=== PATIENT | female | born 2000 | race Two or more races ===

== ENCOUNTER 2022-01-03 04:33 | Emergency (ER) | payer SELFPAY ==
[~2022-01-03] VITALS: Ht 162.6 cm; Wt 81.6 kg
[2022-01-03] MEDS ORDERED: cefTRIAXone 1GM/50ML D5W 50 ML IV ONE (09:30)
[2022-01-03] MEDS ORDERED: SODIUM CHLORIDE 0.9% 1,000 ML IV ONE (09:30)
[2022-01-03 09:56] VITALS: BP 111/71
[2022-01-03 10:07] LABS: Basophils # (auto) 0.1 10 ^3/uL (0-0.2); Basophils % (auto) 2.1 % (0.0-2.0); Eosinophils # (auto) 0 10 ^3/uL (0-0.8); Hematocrit 39.9 % (36.0-46.0); Hemoglobin 13.2 g/dL (12.2-16.2); Lymphocytes # (auto) 0.6 10 ^3/uL (0.4-5.4); Lymphocytes % (auto) 10.6 % (10.0-50.0); Mean Corpuscular Hemoglobin 27.9 pg (28.0-32.0); Mean Corpuscular Hgb Conc. 33.1 g/dL (32.0-36.0); Mean Corpuscular Volume 84.1 fL (80.0-100.0); Monocytes # (auto) 0.6 10 ^3/uL (0-1.3); Monocytes % (auto) 9.5 % (0.0-12.0); Neutrophils # (auto) 4.6 10 ^3/uL (1.6-8.6); Neutrophils % (auto) 77.8 % (37.0-80.0); Nucleated Red Blood Cells % 0.1 %; Red Blood Cells 4.75 10^6/uL (4.0-5.20); Red Cell Distribution Width 14.8 % (11.8-14.3); White Blood Cell 5.9 10^3/uL (4.4-10.8)
[2022-01-03 10:21] LABS: Calcium 9.1 mg/dL (8.5-10.1)
[2022-01-03 10:32] LABS: INR 1.08 (0.9-1.15); Partial Thromboplastin Time 24.2 sec (23.6-33.0)
[2022-01-03 10:37] LABS: BUN/Creatinine Ratio 9.9; Bilirubin, Total 0.3 mg/dL (0.2-1.0); Total Protein 8.9 g/dL (6.4-8.2)
[2022-01-03] MEDS ORDERED: IOHEXOL 350 MG/ML 100ML IJ ONE (11:33)
[2022-01-03] MEDS ORDERED: PRED20TA2 PO (12:10)
[2022-01-03] MEDS ORDERED: AMOX-277 PO (12:10)
[2022-01-03] MEDS ORDERED: ACET-1158 PO (12:10)
== END 2022-01-03 12:46 | disposition home or self-care (01) ==
LOC: ER 04:33
DX: U07.1 COVID-19 (principal); J06.9 Acute upper respiratory infection, unspecified; R04.2 Hemoptysis
CPT/HCPCS: 36415; 71275; 80053; 85025; 85610; 85730; 87426; 87804; 96365; 99285; J0696; J7030; Q9967

== ENCOUNTER 2022-03-26 10:22 | Emergency (ER) | payer SELFPAY ==
[~2022-03-26] VITALS: Ht 162.6 cm; Wt 81.8 kg
[~2022-03-26 10:22] MED LIST: ACET-1158 PO; AMOX-277 PO; PRED20TA2 PO
[2022-03-26] MEDS ORDERED: MAGNESIUM SULFATE 1GM/100ML 100 ML IV ONE (15:45)
[2022-03-26] MEDS ORDERED: METOCLOPRAMIDE HCL 5MG/ml INJ 2ml VIAL IV ONE (15:45)
[2022-03-26] MEDS ORDERED: HYDROcodone-ACET 5/325MG TAB PO ONE (15:45)
[2022-03-26] MEDS ORDERED: METOCLOPRAMIDE HCL 5MG/ml INJ 2ml VIAL IM ONE (16:15)
[2022-03-26 21:15] VITALS: BP 121/74
== END 2022-03-26 21:37 | disposition home or self-care (01) ==
LOC: ER 10:22
DX: R51.9 Headache, unspecified (principal)
CPT/HCPCS: 70450; 81025; 96372; 99284; J2765